=== PATIENT | female | born 1960 | race Caucasian/White ===

== ENCOUNTER 2018-12-01 22:56 | Inpatient (IN) | payer SELFPAY ==
[~2018-12-01] VITALS: Ht 154.9 cm; Wt 70.5 kg
[2018-12-01 23:01] VITALS: Ht 154.9 cm; Wt 70.5 kg
[2018-12-01 23:45] LABS: BASOPHIL % 0.4 % (0-2); PLATELET COUNT 259 x10^3mcL (130-400); RED CELL DISTRIBUTION WIDTH 13.2 % (11.5-14.5)
--- NOTE | 2018-12-02 00:02 | NUR ---
PT. STATES PAIN LEVEL 10. MEDICATIONS "VERY LITTLE HELP". ER MD NOTIFIED.
--- NOTE | 2018-12-02 00:06 | NUR ---
PT. ADMITTED TO ER 9 AT 2344. SEEN AND EXAMINED BY DR. BAKER. ORDERS WRITTEN AND CARRIED OUT. MEDICATIONS GIVEN PER EMAR. MEDS GIVEN ON TIME. PT. A/A/O X4 . C/O SUDDEN PAIN TO MID CHEST RADIATING TO LOW BACK STARTED AT 1900. PAIN LEVEL 10/10 ON ADMIT. WILL CONTINUE TO MONITOR AND OBSERVE.
--- NOTE | 2018-12-02 00:14 | NUR ---
ENDORSED TO EMELY CARDENAS. ER WILL ORDER PAIN MEDS. PT. REMAINS A/A/O X 4.
--- NOTE | 2018-12-02 00:47 | NUR ---
PT STS PAIN IS STILL BAD, 09/23. DR BAKER MADE AWARE.
--- NOTE | 2018-12-02 01:52 | NUR ---
PT. LAYING IN BED, AAOX4, NO ACUTE DISTRESS NOTED, 09/23 SHARP, URQ, RADIATES TO BACK, PENDING ADMIT, MEDICATED PER MD ORDER, VSS, WILL CONTINUE TO MONITOR
--- NOTE | 2018-12-02 01:52 | NUR ---
MEDICATED PT PER MD ORDER, PT. TOLERATED WELL, SEE EMAR
[2018-12-02 02:05] LABS: CALCIUM 8.1 mg/dL (8.5-10.1); CARBON DIOXIDE 25.6 mmol/L (21-32); CHLORIDE SERUM 105 mmol/L (98-107); GFR1 > 60 mL/min; GLUCOSE SERUM 198 mg/dL (74-106); POTASSIUM SERUM 3.8 mmol/L (3.5-5.1); SODIUM SERUM 141 mmol/L (136-145)
[2018-12-02 02:10] LABS: ALBUMIN 3.7 g/dL (3.4-5.0); ALKALINE PHOSPHATASE 92 U/L (46-116); ALT/SGPT 42 U/L (14-59); AMYLASE 77 U/L (25-115); AST/SGOT 22 U/L (15-37); BILIRUBIN TOTAL 0.3 mg/dL (0.20-1.00); LIPASE 165 IU/L (73-393); TOTAL PROTEIN, SERUM 7.6 g/dL (6.4-8.2)
--- NOTE | 2018-12-02 03:15 | NUR ---
PT. STS HER PAIN IS GETTING WORSE AGAIN, RUQ PAIN 8/10, SHARP, INTERMITTENT, REPORTED TO DR. SALGUERO ORDER RECEIVED,
--- NOTE | 2018-12-02 04:14 | NUR ---
REPORT CALLED TO BAHMAN CARDENAS
--- NOTE | 2018-12-02 04:14 | NUR ---
TRANSPORTED TO CAT VIA WHEELCHAIR,
--- NOTE | 2018-12-02 04:27 | NUR ---
PT. RETURNED FROM CT
--- NOTE | 2018-12-02 05:45 | NUR ---
RECEIVED PT FROM ED VIA WHEELCHAIR ACCOMPANY BY NURSE. PT AAOX4 DENIES VELIZ/DIZZINESS. BREATHING EVEN AND UNLABORED ON RA WITH NO SOB NOTED. MED SURG PT DENIES CHEST PAIN/PRESSURE. ABD SOFT ROUND/DISTENDED ACTIVE BOWEL SOUNDS. DENIES ABD PAIN/N/V. NO EDEMA NOTED. PALPABLE PULSES. IV LFA PATENT, INFUSING WELL NO SIGNS OF INFILTRATION. PT STATES SHE CAME TO ED D/T ABD PAIN. PT AMBULATORY. NO SIGNS OF DISTRESS NOTED. CALL BUTTON WITHIN REACH. SAFETY PRECAUTIONS IN PLACE. WILL CONTINUE TO MONITOR AND ENDORSE CARE TO DAY SHIFT RN.
[2018-12-02 06:01] VITALS: BP 117/57
--- NOTE | 2018-12-02 07:20 | NUR ---
RECEIVED PT FROM METAL MIXER RN. Eliezer/BAILEY. MED SURG. DENIES CHEST PAIN/PRESSURE. RESPIRATIONS EQUAL AND UNLABORED ON RA. DENIES SOB. PT DENIES ANY ABDOMINAL PAIN AT THIS TIME. PT STATES "SINCE I CAME TO THE FLOOR, I HAVENT HAD ANY ABDOMINAL PAIN." PT DENIES ANY N/V. IV TO LFA PATENT AND INFUSING. NO REDNESS OR SWELLING NOTED. WILL CONTINUE TO MONITOR. CALL LIGHT IN REACH. BED IN LOWEST POSITION.
--- NOTE | 2018-12-02 07:42 | NUR ---
PT RESTING DENIES ANY PAIN. NO SIGNS OF DISTRESS NOTED. ENDORSED CARE TO DAY SHIFT RN, ALL QUESTIONS ADDRESSED.
--- NOTE | 2018-12-02 08:50 | NUR ---
PT SITTING UP IN BED. NO ACUTE RESP DISTRESS NOTED ON RA. PT DENIES ANY PAIN AT THIS TIME. PT DENIES ANY N/V AT THIS TIME. IV TO LFA PATENT AND INFUSING. NO REDNESS OR SWELLING NOTED. WILL CONTINUE TO MONITOR. CALL LIGHT IN REACH. BED IN LOWEST POSITION.
[2018-12-02 09:48] VITALS: BP 108/52
--- NOTE | 2018-12-02 10:02 | NUR ---
DR. SMILEY AT BEDSIDE. EXPLAINING TO PT WILL AWAIT FOR DR. MOSELEY TO SEE THE PT AND EVALUATE IF PT WILL NEED SURGERY. DR. SMILEY EXPLAINED TO PT SHE IS DIABETIC AND WILL BE ON ACCU CHECKS WHILE IN HOSPITAL. PER DR. SMILEY DISCHARGE PT WITH MEDICATIONS TO CONTROL DIABETES. ALL QUESTIONS AND CONCERNS ADDRESSED.
--- NOTE | 2018-12-02 13:31 | NUR ---
DR. MOSELEY AT BEDSIDE. PER DR. MOSELEY PT IS OKAY TO DISCHARGE, THERE IS NO NEED OF SURGERY. CALLED [employer] PHONE SPOKE WITH DR. HA PER DR. HA PT IS UNDER DR. SMILEY AND NOTIFY DR. SMILEY.
[2018-12-02 16:28] VITALS: BP 112/46
--- NOTE | 2018-12-02 16:29 | NUR ---
PATIENT SEEN SITTING UP, RESPONSIVE. IV SITE AT LFA DISCONTINUED DUE TO INFILTRATION. NEW IV SITE AT [facility] WITH NS RUNNING AT 100 ML/H. ACCUCHECK DONE WITH CBG OF 182MG/DL. 3 UNITS OF REG INSULIN, SQ GIVEN AT RIGHT UPPER POSTERIOR ARM. PATIENT MENTIONED TAKING 1 BOTTLE OF ENSURE AND JELLO. PATIENT EDUCATED ABOUT BLOOD SUGAR LEVELS, DIETARY MANAGEMENT AND MEDICATION. CALL LIGHT WITHIN REACH. BED AT LOWEST POSITION.
[2018-12-02 17:08] LABS: UA SPECIFIC GRAVITY <=1.005 (1.005-1.035); microscopic required? YES; urine erythrocyte TRACE (NEGATIVE)
[2018-12-02 17:17] LABS: AMPHETAMINE QUAL UR NONE DETECTED (See below)
--- NOTE | 2018-12-02 18:47 | NUR ---
PT SITTING UP IN BED. NO ACUTE RESP DISTRESS NOTED ON RA. PT DENIES ANY PAIN AT THIS TIME. PT DENIES ANY ABDOMINAL PAIN AT THIS TIME. IV TO RFA PATENT AND INFUSING. NO REDNESS OR SWELLING NOTED. WILL ENDORSE TO BACKEND DEVELOPER RN. CALL LIGHT IN REACH. BED IN LOWEST POSITION.
[2018-12-02 20:00] VITALS: BP 108/53
--- NOTE | 2018-12-02 20:00 | NUR ---
PATIENT RECEIVED IN BED AWAKE,ALERT AND ORIENTED X4, SPEECH CLEAR DENIED VELIZ NOR DIZZINESS. BREATHING EVEN AND UNLABORED BS CLEAR, ON ROOM AIR SAT 96%,DENIED SOB.IV SITE NO SIGN OF INFILTRATION.AMBULATORY WITH STEADY GAIT. PATIENT DENIED ABDOMINAL PAIN NOR DISCOMFORTS, DENIED N/V/D.PATIENT INFORMED ABOUT PAIN MANAGEMENT AND POC THIS SHIFT. SAFETY PRECAUTIONS MAINTAINED. WILL CONTINUE TO MONITOR.
--- NOTE | 2018-12-02 23:05 | NUR ---
DR RUIZ INFORMED ABOUT RESULT OF UA WITH 1+ LEUK, WBC AND FEW BACT.
--- NOTE | 2018-12-03 01:20 | NUR ---
CALLED PHARMACY REGARDING ROCEPHIN ORDER, STATED PATIENT ALLERGIC TO PCN AND CANT VERIFY ORDER, STATED TO CALL MD IF IT COULD BE CHANGED TO [place]. DR RUIZ PAGED GATED. WILL FOLLOW UP.
[2018-12-03 05:46] VITALS: BP 104/51
--- NOTE | 2018-12-03 05:53 | NUR ---
PATIENT HAD A RESTFUL AND QUIET NIGHT, NO COMPLAINT OF ABDOMINAL PAIN. IV SITE NO SIGN OF INFILTRATION. AMBULATORY WITH STEADY GAIT. SAFETY PRECAUTIONS MAINTAINED. WILL ENDORSE CONTINUITY OF CARE TO INCOMING NURSE.
[2018-12-03 06:08] LABS: BASOPHIL % 0.5 % (0-2); PLATELET COUNT 235 x10^3mcL (130-400); RED CELL DISTRIBUTION WIDTH 13.4 % (11.5-14.5)
[2018-12-03 06:30] LABS: CALCIUM 7.8 mg/dL (8.5-10.1); CARBON DIOXIDE 24.4 mmol/L (21-32); CHLORIDE SERUM 110 mmol/L (98-107); CREATININE SERUM 0.7 mg/dL (0.6-1.0); GFR1 > 60 mL/min; GLUCOSE SERUM 124 mg/dL (74-106); MAGNESIUM 2.1 mg/dL (1.8-2.4); PHOSPHOROUS 3.2 mg/dL (2.5-4.9); POTASSIUM SERUM 4.2 mmol/L (3.5-5.1); SODIUM SERUM 144 mmol/L (136-145)
--- NOTE | 2018-12-03 07:20 | NUR ---
BEDSIDE REPORT AND INTRODUCTION PERFORMED WITH INCOMING NURSE ERLINDA.
--- NOTE | 2018-12-03 07:23 | NUR ---
REPORT TAKEN FROM TRAY CHECKER NURSE, PATIENT AWAKE AND ALERT FOR REPORT. IN NO ACUTE DISTRESS AT THIS TIME, WILL CONTINUE TO MONITOR.
[2018-12-03 09:38] VITALS: BP 105/47
[2018-12-03 10:14] VITALS: BP 105/47
[2018-12-03] MEDS ORDERED: LEVOFLOXACIN500 M1 PO (11:21)
--- NOTE | 2018-12-03 14:03 | NUR ---
PATIENT SIGNED DC PAPERWORK AT THIS TIME, ADVISED TO PUTAWAY DRIVER PRESCRIPTION FROM PHARMACY, PATIENT CONFIRMED PHARMACY LOCATION. PATIENT ALSO GIVEN INFORMATION TO FOLLOW UP WITH PROVIDERS AT OUTPATIENT CLINIC. IV DC'D FROM RIGHT AC WITH CATH INTACT, BLEEDING CONTROLLED, SITE DRESSED WITH GAUZE AND COBAN. PATIENT TAKEN TO EXIT BY BILINGUAL LOAN PROCESSOR.
== END 2018-12-03 14:06 | disposition home or self-care (01) | DRG 446 ==
LOC: ED 22:56 → MU 12-02 02:26
PROVIDERS: Student in an Organized Health Care Education/Training Program; ADMIT Internal Medicine
DX: K80.20 Calculus of gallbladder without cholecystitis without obstruction (principal); I10 Essential (primary) hypertension; E83.51 Hypocalcemia; Z88.0 Allergy status to penicillin; Z79.899 Other long term (current) drug therapy
CPT/HCPCS: 82962; G0378; J1815; J1885; J1956; J2270; J2405; J3490; J7030; Q0092; Q9967